=== PATIENT | female | born 1955 | race Caucasian/White ===

== ENCOUNTER 2020-04-15 08:06 | Outpatient (CLI) | payer MEDICARE, SELFPAY ==
[2020-04-15 09:38] LABS: Basophils Absolute Auto 0.1 K/mm3 (0.0-0.1); Basophils Percent Auto 1.2 % (0.2-1.2); Eosinophils Absolute Auto 0.1 K/mm3 (0-0.3); Eosinophils Percent Auto 1.6 % (0-4.4); Hematocrit 40.3 % (37.0-47.0); Hemoglobin 14.2 g/dL (12.0-15.0); Immature Granulocyte Absolute 0.01 K/mm3 (0.00-0.031); Immature Granulocyte Percent A 0.2 % (0-0.5); Lymphocytes Absolute Auto 1.05 K/mm3 (0.9-3.2); Lymphocytes Percent Auto 24.6 % (18.3-44.2); Mean Corpuscular HGB Conc 35.2 g/dl (32-36); Mean Corpuscular Hemoglobin 32.9 pg (26-34); Mean Corpuscular Volume 93.3 fl (80-100); Mean Platelet Volume 10.2 fl (7.4-10.4); Monocytes Absolute Auto 0.5 K/mm3 (0.1-0.6); Monocytes Percent Auto 11.7 % (2.6-8.5); Neutrophils Absolute Auto 2.6 K/mm3 (1.3-6.7); Neutrophils Percent Auto 60.7 % (45.5-73.1); Platelet Count Result 154 k/mm3 (150-375); Red Blood Count 4.32 M/mm3 (4.2-5.4); Red Cell Distribution Width 13.1 % (11.5-14.5); White Blood Count 4.3 K/mm3 (4.5-10.0)
[2020-04-15 09:46] LABS: Albumin Level 4.2 g/dL (3.5-5.1)
[2020-04-15 09:49] LABS: Hemoglobin A1C 5.1 % (<5.7)
[2020-04-15 09:50] LABS: Anion Gap 5 mmol/L (8-16); Blood Urea Nitrogen 23 mg/dL (7-17); Calcium 9.3 mg/dL (8.4-10.2); Carbon Dioxide 34 mmol/L (22-30); Chloride 102 mmol/L (98-107); Estimated Glomerular Filt Rate 56; Glucose 99 mg/dL (65-105); Potassium 3.8 mmol/L (3.4-5.0); Sodium 141 mmol/L (137-145); Urine Cotinine NEGATIVE
== END 2020-04-15 08:07 | disposition home or self-care (01) ==
LOC: ANHSURGERY 08:09
PROVIDERS: Anesthesiology; PCP Internal Medicine; Visit Provider Orthopaedic Surgery
DX: M17.12 Unilateral primary osteoarthritis, left knee (principal); I10 Essential (primary) hypertension; Z01.818 Encounter for other preprocedural examination
CPT/HCPCS: 80048; 80307; 82040; 83036; 85025; 86850; 86900; 86901; 87081

== ENCOUNTER → 2020-07-06 10:20 | Outpatient (CLI) | payer MEDICARE, SELFPAY ==
--- NOTE | ~2020-07-06 | MM_ITS ---
EXAMINATION: MM screening lanie BI w reji HISTORY: Screening TECHNIQUE: Craniocaudal and mediolateral oblique 3-D tomosynthesis images were obtained and synthetic 2-D images were generated. CAD analysis was submitted and interpreted. COMPARISON: Comparison to multiple prior studies sequentially, with oldest reviewed study dated 09/04. BREAST PARENCHYMAL COMPOSITION: There are scattered areas of fibroglandular density. FINDINGS: There is no evidence of suspicious mass, calcification, or architectural distortion to sugg est malignancy in either breast. There has been no suspicious interval change. IMPRESSION: 1. No mammographic evidence of malignancy. 2. Recommend routine screening mammography in one year. BI-RADS Category 1: Negative Reviewed, dictated and finalized at location A. 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
== END ==
PROVIDERS: PCP Internal Medicine; Visit Provider Obstetrics & Gynecology
DX: Z12.31 Encounter for screening mammogram for malignant neoplasm of breast (principal)
CPT/HCPCS: 77063; 77067

== ENCOUNTER 2020-07-21 08:48 | Outpatient (CLI) | payer MEDICARE, SELFPAY ==
[2020-07-21 09:27] LABS: Basophils Absolute Auto 0.1 K/mm3 (0.0-0.1); Eosinophils Absolute Auto 0.1 K/mm3 (0-0.3); Eosinophils Percent Auto 1.4 % (0-4.4); Hematocrit 42.9 % (37.0-47.0); Hemoglobin 15.3 g/dL (12.0-15.0); Immature Granulocyte Absolute 0.01 K/mm3 (0.00-0.031); Immature Granulocyte Percent A 0.2 % (0-0.5); Lymphocytes Percent Auto 20.2 % (18.3-44.2); Mean Corpuscular HGB Conc 35.7 g/dl (32-36); Mean Corpuscular Hemoglobin 33.3 pg (26-34); Mean Corpuscular Volume 93.3 fl (80-100); Mean Platelet Volume 9.9 fl (7.4-10.4); Monocytes Absolute Auto 0.6 K/mm3 (0.1-0.6); Monocytes Percent Auto 11.3 % (2.6-8.5); Neutrophils Absolute Auto 3.3 K/mm3 (1.3-6.7); Neutrophils Percent Auto 65.9 % (45.5-73.1); Platelet Count Result 153 k/mm3 (150-375); Red Cell Distribution Width 12.8 % (11.5-14.5)
[2020-07-21 09:35] LABS: Urine Cotinine NEGATIVE
[2020-07-21 09:53] LABS: Albumin Level 4.1 g/dL (3.5-5.1)
[2020-07-21 09:57] LABS: Anion Gap 8 mmol/L (8-16); Blood Urea Nitrogen 23 mg/dL (7-17); Calcium 9.4 mg/dL (8.4-10.2); Carbon Dioxide 29 mmol/L (22-30); Chloride 103 mmol/L (98-107); Estimated Glomerular Filt Rate 56; Glucose 109 mg/dL (65-105); Potassium 4.2 mmol/L (3.4-5.0); Sodium 140 mmol/L (137-145)
[2020-07-21 09:59] LABS: Hemoglobin A1C 5.3 % (<5.7)
== END 2020-07-21 08:49 | disposition home or self-care (01) ==
PROVIDERS: Anesthesiology; PCP Internal Medicine; Visit Provider Orthopaedic Surgery
DX: M17.12 Unilateral primary osteoarthritis, left knee (principal); Z79.899 Other long term (current) drug therapy; Z01.818 Encounter for other preprocedural examination
CPT/HCPCS: 36415; 80048; 80307; 82040; 83036; 85025; 86850; 86900; 86901; 87081

== ENCOUNTER → 2020-07-22 00:15 | Outpatient (CLI) | payer MEDICARE, SELFPAY ==
[2020-07-22 18:19] LABS: SARS-CoV-2 RNA PCR Negative
== END ==
PROVIDERS: Family Provider Internal Medicine; PCP Internal Medicine; Visit Provider Orthopaedic Surgery
DX: Z01.812 Encounter for preprocedural laboratory examination (principal); Z20.822 Contact with and (suspected) exposure to COVID-19
CPT/HCPCS: C9803; U0003; U0005

== ENCOUNTER 2020-07-25 01:01 | Day surgery (SDC) | payer MEDICARE, SELFPAY ==
[2020-04-15 08:15] VITALS: BMI 34.5
[2020-04-15 09:05] VITALS: BP 111/56; PULSE 64; RESP 16; TEMP 36.8; O2SAT 99
[2020-07-19 10:35] VITALS: BMI 34.4
[2020-07-25] VITALS (14 sets, daily range): BP systolic 105–133; BP diastolic 48–70; PULSE 63–88; RESP 14–20; TEMP 36.2–36.6; O2SAT 93–100
--- NOTE | ~2020-07-25 | XR_ITS ---
XR knee LT 2V DATE: 07/25/2020 10:02 INDICATION: Postoperative examination TECHNIQUE: Portable AP and lateral views COMPARISON: 12/15/2019 left knee FINDINGS: Status post left total knee arthroplasty with patellar resurfacing. Normal alignment of the prosthetic components. No fracture, dislocation or unusual radiopaque foreign body. No periosteal re action or bone destruction. There is expected postoperative subcutaneous emphysema. IMPRESSION: Status post left total knee arthroplasty with patellar resurfacing Reviewed, dictated and finalized at location B. [employer]
[2020-07-25] MEDS: ACETAMINOPHEN 500 MG TABLET 1000 MG PO ×4 (06:29→23:41)
--- NOTE | 2020-07-25 06:51 | WPDANESEPPF ---
Anes - Initial Pre Proc Eval Procedure: Operation Date: 07/25/20 07:30 Proposed Procedures p Left Total Knee Arthroplasty - Parmjit Watkins MD Date/Time: 07/25/20 06:51 Surgeon: Parmjit Watkins MD Pre Op Diagnosis: OA Left Knee Patient Data Age: 65 Gender: F Height: 1.63 m Weight: 91.8 kg Last Vital Signs Temp 36.4 C L 07/25/20 06:09 Pulse 73 07/25/20 06:09 Resp 16 07/25/20 06:09 BP 133/70 07/25/20 06:09 Pulse Ox 99 07/25/20 06:09 Allergies Allergy/AdvReac Type Severity Reaction Status Date / Time ciprofloxacin Allergy Severe CARDIAC Verified 07/25/20 06:30 ARRYTHMIA, SWELLING, ITCHING,CONFUSION Penicillins Allergy Mild Unknown Verified 07/25/20 06:30 Sulfa (Sulfonamide Allergy Mild RASH,SWELLI Verified 07/25/20 06:30 Antibiotics) NG Home Medications Medication Instructions Recorded Confirmed Type cholecalciferol (vitamin D3) 2,000 unit PO HS 05/18/19 07/25/20 History [Vitamin D3] folic acid 0.8 mg PO DAILY 05/18/19 07/25/20 History hydroxychloroquine 200 mg PO BID 05/18/19 07/25/20 History methotrexate sodium 2.5 mg PO WEEKLY 05/18/19 07/25/20 History ltaphvu-dmgqjjtku-novb 333 mg-133 1 tablet PO HS 06/16/19 07/25/20 History mg-5 mg tablet cyanocobalamin (vitamin B-12) 1,000 mcg PO DAILY 04/15/20 07/25/20 History flaxseed oil 1,000 mg PO HS 04/15/20 07/25/20 History losartan-hydrochlorothiazide 1 tablet PO QAM 04/15/20 07/25/20 History omega-3 fatty acids-vitamin E 1 cap PO BID 04/15/20 07/25/20 History [Fish Oil] nabumetone 750 mg tablet 375 mg PO BID tablet 06/29/20 07/25/20 History omeprazole 20 mg capsule,delayed 20 mg PO DAILY #90 cap 06/29/20 07/25/20 Rx release docusate sodium 100 mg capsule 100 mg PO DAILY PRN 07/20/20 07/25/20 History Patient hx anesthesia problems: post op nausea/vomiting Family hx anesthesia problems: none PMF Past Medical History Medical History (Updated 07/22/20 @ 08:13 by Leland Tran DO) Anxiety Gastroesophageal reflux disease without esophagitis Hypertension Mixed hyperlipidemia Osteoarthritis Osteoarthritis of left knee Osteopenia SLE (systemic lupus erythematosus related syndrome) Surgical History Surgical History History of cholecystectomy History of medial meniscus repair of right knee History of repair of rotator cuff Bilateral History of total knee replacement Right Family History Family History Mother Family history of chronic obstructive pulmonary disease Family history of heart disease in male family member before age 55 Kidney disease Social History Social History Smoking status: Never smoker Second hand tobacco smoke exposure: No Additional smoking assessment comments: NO NICOTINE OF ANY KIND Alcohol intake: former Alcohol use details: SOCIAL DRINKER IN PAST Substance use: never Living arrangements: with family Additional living arrangements comments: Additional occupation/education comments: [employer] Gender identity (if verbalized by the patient): Female Spiritual care concerns: No Anes - Eval Final PreProcedure Day of Procedure 07/25/20 06:51 Patient weight: obese Heart: regular rate and rhythm Lungs: clear to auscultation and normal air movement Airway: Mallampati scale class II Neurological: alert and oriented Last oral intake: >/= 8 hours ASA classification: III Emergent: no Anesthetic plan: proceed Anesthesia type and monitoring: general LMA and standard monitoring Informed Consent: The patient's anesthetic plan and its attendant risks and benefits were discussed with the patient/family/POA. Questions were solicited and answers provided to the satisfaction of the patient/family/POA.
--- NOTE | 2020-07-25 06:51 | WPDANESPNB ---
Anes - Peripheral Nerve Block Date/Time: 07/25/20 06:51 I have discussed with the patient/family/POA the placement of a peripheral nerve block for post-operative pain management, including associated risks, benefits, complications, and side effects. Alternative methods of post-operative analgesia were detailed. Questions were solicited and answers provided to the satisfaction of the patient/family/POA. Time-Out: A pre-procedural Time-Out was completed immediately before starting the procedure and confirmed: Patient Identification, Site, Procedure, Patient Position and the Availability of Requisite Equipment. Clinical Indications: Acute post-operative pain management requested by the operative surgeon. Nerve Block Insertion Note Anes-nerve block: adductor canal left Patient position: supine Skin prep: chlorhexidine Needle: 22 gauge, stimulating, insulated echogenic needle. Needle length: 80 mm Technique: ultrasound Injectate: bupivacaine 0.5% with epi 5 mcg/ml (30cc) Observations: tolerated well Complications: none Procedure start time:: 721 Procedure end time:: 724
[2020-07-25] MEDS: LACTATED RINGERS 1,000 ML 30 ML IV CONT ×2 (07:00→09:51)
[2020-07-25] MEDS: TRANEXAMIC ACID 1,000MG/ISO100 1,000 MG/100 ML BAG 200 MG IVPB (07:01)
[2020-07-25] MEDS: SCOPOLAMINE 1.5 MG PATCH TRANSDERM (07:09)
[2020-07-25] MEDS: FAMOTIDINE 20 MG/2 ML VIAL IV PUSH (07:09)
--- NOTE | 2020-07-25 07:10 | WPDHPUPDATE1 ---
History and Physical Update Update Date/Time: 07/25/20 07:10 History and Physical has been reviewed, including an updated exam of the patient. There are NO changes in the patient's condition. Risks, benefits, and alternatives have been discussed and questions answered. Patient agrees to proceed with procedure.
[2020-07-25] MEDS: ceFAZolin 2 GM/D5W 50 ML 2 GM/50 ML BAG IVPB ×3 (07:30→23:43)
[2020-07-25] MEDS: BUPIVACAINE/EPINEPHRINE 0.25% 50 ML VIAL 60 ML INFILTRATE (08:18)
[2020-07-25] MEDS: ceFAZolin SODIUM 1 GM VIAL IV PUSH (08:59)
[2020-07-25] MEDS: TRANEXAMIC ACID 1,000 MG/10 ML AMPUL 1000 MG XX (09:05)
--- NOTE | 2020-07-25 09:46 | P.OP_ITS ---
Procedure Note - Detailed Date of procedure: 07/25/20 Pre-op diagnosis: OA Left Knee Post-op diagnosis: same Procedure performed: Left total knee replacement Description of procedure: The patient was identified and proper site identified. In the preop holding area the anesthesia team performed a left sub sartorial block after which the patient was taken to the operating room and transferred to the OR table positioning supine taking care to pad the torso and extremities. After general anesthetic induction and intubation a nonsterile tourniquet was placed high on the left thigh. The left lower extremity was prepped and draped in the usual sterile fashion. The extremity was exsanguinated and with the knee flexed tourniquet was inflated to 300 mmHg remaining up for approximately 60 minutes. An anterior midline incision was made and a mid vastus approach was used. Infra and suprapatellar fat pads were excised. Patella was resected leaving 15 mm thickness and prepared for the 31 round three peg component. Using the intramedullary guide the distal femur was cut in the proper orientation for the size 62.5 femoral component. Using the extramedullary guide the tibia was cut perpendicular to the long axis protecting collateral ligaments and popliteal structures. It was sized to a 67. Flexion and extension gaps were balanced. Trial reduction was undertaken and the weight-bearing line was noted to passed through the center of the joint. Proximal tibia was drilled and punched in the proper orientation for the real component. Trial components were removed. The bone surfaces were washed with pulsatile lavage and dried. The real components were cemented simultaneously. The knee was held in extension and the patella held clamped until the cement had cured. Excess cement was removed from the joint. After trialing it was determined that the 12 mm insert gave full range of motion from 0-120 degrees of flexion and the patella tracked in the femoral groove with no lift-off. After final lavage the joint the real 12 E poly insert was placed and secured with a locking bar. A Betadine and saline wash was placed into the wound and allowed to sit for approximately 3 minutes and then evacuated. Periarticular tissues were infiltrated with 60 cc of the arthroplasty solution. 1 g of tranexamic acid was left in the wound. The extensor mechanism was repaired with #2 Vicryl suture and 0 looped PDS suture. Subcu was reapproximated with two 0 strata fix and tissue adhesive for the skin. A sterile dressing was applied. she tolerated the procedure well, was awakened and extubated, transferred to the bed and was taken to recovery area in stable condition. There were no known intraoperative complications. Perioperative antibiotics were administered. Surgeon: Parmjit Watkins MD Regulatory Auditor: Nina Ash Estimated blood loss (mL): 100 Tourniquet time (min): 60 Drains: No Packing: No Pathology: none sent Complications: No immediate complications Condition: stable Disposition: PACU
[2020-07-25] MEDS: fentaNYL CITRATE INJ (*CRX) 100 MCG/2 ML VIAL 25 MCG IV PUSH ×4 (10:22→10:51)
--- NOTE | 2020-07-25 11:10 | ADMGEN ---
This patient, Laurita Myles, was admitted to Medical Room 255-. Patient/family oriented to hospital policies and general routines including ID bracelet, bed and alarms, visiting hours, pain management, procedures, bathroom and other care routines, personal items, smoking policy, room service/diet, and visiting hours. Information on how to activate the Rapid Response Team has been discussed. Patient/Family are encouraged to report perceived risks to care and to ask questions if they do not understand what they are told or what they should do.
[2020-07-25] MEDS: KETOROLAC 15 MG/ML VIAL (*BKC) IV PUSH ×3 (11:29→23:41)
[2020-07-25] MEDS: SODIUM CHLORIDE 0.9% IV 1,000 ML 125 ML IV CONT (11:29)
[2020-07-25] MEDS: TAPENTADOL HCL (*CRX) 50 MG TABLET PO ×4 (11:29→23:41)
[2020-07-25] MEDS: OMEGA 3 POLYUNSAT FATTY ACIDS 1 GM CAP PO (16:10)
[2020-07-25] MEDS: HYDROXYCHLOROQUINE SULFATE 200 MG TABLET PO (16:10)
[2020-07-26 00:51] VITALS: BP 122/58; PULSE 83; RESP 18; TEMP 36; O2SAT 97
[2020-07-26] MEDS: TAPENTADOL HCL (*CRX) 50 MG TABLET PO ×3 (04:01→11:11)
[2020-07-26 04:51] VITALS: BP 95/51; PULSE 79; RESP 20; TEMP 36.3; O2SAT 97
[2020-07-26] MEDS: ACETAMINOPHEN 500 MG TABLET 1000 MG PO ×2 (06:10→11:11)
[2020-07-26] MEDS: ceFAZolin 2 GM/D5W 50 ML 2 GM/50 ML BAG IVPB (06:45)
--- NOTE | 2020-07-26 07:36 | PM.DS ---
DS: Admitting Diagnosis Admitting Diagnosis Admitting Diagnosis: Osteoarthritis left knee DS: Discharge Diagnosis Discharge Diagnosis (1) History of left knee replacement: Code(s): Z96.652 - Presence of left artificial knee joint Status: Acute Assessment and Plan: Patient will be discharged home today. Her outpatient therapy begins in one week. She was provided with detailed instructions and was asked to call the office with any questions prior to her follow-up. DS: Summary Hospital Course Reason for hospitalization: Overnight observation following outpatient procedure Hospital Course: Postoperative course uneventful Status at Discharge Functional status at discharge: uses cane/walker Time Spent with Patient Time attestation: Total time spent providing and/or coordinating discharge services: Time spent: Less than 30 minutes Exam Const: General: cooperative, no acute distress and alert Nutritional Appearance: other Orientation/consciousness: patient oriented x3 HENMT: Head: normal to inspection Ears: hearing grossly normal bilaterally Face and sinus: face symmetric Eyes: Alignment and Position: alignment normal and position normal Sclera: sclerae normal Neck: Neck: normal visual inspection and nontender Chest: Chest palpation & inspection: normal inspection of the chest Resp: Effort & Inspection: normal respiratory effort and able to speak in complete sentences GI: Inspection: other (Abdomen nondistended) Skin: General skin exam: normal color Rashes: no rashes Neuro: General: patient oriented x3 Cognition (Neuro): normal cognition Speech: normal speech Extrem: General: normal to inspection and other Other: Exam of the left knee shows well opposed incision with very little swelling, no bruising or erythema. Calves negative. Psych: Appearance: grossly normal Mental Status: mental status grossly normal Discharge Plan Discharge Patient Disposition: Home, Self-Care Discharge Instructions: 3 times daily for 20 minutes each time, reclining in bed with ice packs over the incision and a pillow underneath the calf of the affected leg, not under the knee. Your wound is glued so it is okay to get into the shower and get the wound wet in two days. Be sure to read through all the information that came from a my office and the hospital. Most of the answers you will need can be found that material. Call the office with any questions that you cannot find answers to, or concerns you may have. After the Xarelto is completed, start taking one coated 325 mg aspirin daily and do this for four more weeks. Please call [facility] at as soon as possible to verify your follow-up appointment to be seen in 2 weeks. Also, call the office with any orthopedic/surgical related questions prior to follow-up. Be sure to get up and move around several times daily but do not overdo it. Take the arthritis formula Tylenol 650 mg tablet on an 8 hour schedule. A good 8 hour schedule is: 6:00 a.m., 2:00 p.m., 10:00 p.m. You may take the prescribed pain medication along with the Tylenol; it is not to be taken instead of the Tylenol. I would like for you to take the Tylenol on a schedule for 2-3 weeks. Once the Xarelto is completed, if you wish to supplement your pain regimen with the nabumetone, that is fine. Follow the label instructions. Remove the Scopolamine patch that was placed behind your ear in 72 hours or less. Wash your hands after touching. Stand Alone Forms: General Discharge Instructions Discharge Medications: New Nucynta 50 mg Tablet 50 mg PO Q4H PRN (Reason: pain) Qty: 30 RF: 0 Held nabumetone 750 mg tablet 375 mg PO BID RF: 0 Hold Instructions: Resume on 08/08/20. Hold while taking the Xarelto methotrexate sodium 2.5 mg tablet 2.5 mg PO WEEKLY RF: 0 Hold Instructions: Resume on 08/08/20. omega-3 fatty acids-vitamin E 1,000 mg Capsule 1 cap P
[2020-07-26] MEDS: FOLIC ACID 0.4 MG TABLET 0.8 MG PO (08:06)
[2020-07-26] MEDS: OMEGA 3 POLYUNSAT FATTY ACIDS 1 GM CAP PO (08:06)
[2020-07-26] MEDS: HYDROXYCHLOROQUINE SULFATE 200 MG TABLET PO (08:06)
[2020-07-26] MEDS: RIVAROXABAN 10 MG TABLET PO (08:07)
[2020-07-26] MEDS: PANTOPRAZOLE 40 MG TABLET PO (08:07)
[2020-07-26] MEDS: DOCUSATE SODIUM 100 MG CAPSULE PO (08:09)
[2020-07-26 08:11] VITALS: BP 120/74
[2020-07-26] MEDS: hydroCHLOROthiazide 25 MG TABLET PO (08:12)
[2020-07-26] MEDS: LOSARTAN POTASSIUM 100 MG TABLET PO (08:12)
--- NOTE | 2020-07-26 08:36 | WPDANESPN ---
Anes - Prog Note Post-Op Date/Time: 07/26/20 08:36 Cardiovascular status: normal Respiratory status: normal Airway patency: baseline Mental status: baseline Post-Op hydration status: normal Vital Signs: Last Vital Signs Temp 36.3 C L 07/26/20 04:51 Pulse 79 07/26/20 04:51 Resp 20 07/26/20 04:51 BP 120/74 07/26/20 08:11 Pulse Ox 97 07/26/20 04:51 Pain Score (VAS): 2 I/O: Intake & Output 07/25/20 07/26/20 07/26/20 23:59 07:59 15:59 Intake Total 1290 400 300 Output Total 550 Balance 1290 -150 300 Post-procedural complaints: none Patient Feedback: Patient satisfied with anesthetic care.
[2020-07-26 08:51] VITALS: BP 113/63; PULSE 77; RESP 16; TEMP 36.6; O2SAT 96
[2020-07-26] MEDS: CYANOCOBALAMIN 1,000 MCG TABLET 1000 MCG PO (11:11)
== END 2020-07-26 11:30 | disposition home or self-care (01) ==
LOC: ANHSURGERY 09:37 → ANH2MED 11:11
PROVIDERS: Family Provider Internal Medicine; PCP Internal Medicine; Visit Provider Orthopaedic Surgery
PROC: (CPT 27447; principal; 2020-07-25 07:30)
DX: M17.12 Unilateral primary osteoarthritis, left knee (principal); G89.18 Other acute postprocedural pain; I10 Essential (primary) hypertension; E78.5 Hyperlipidemia, unspecified; M32.9 Systemic lupus erythematosus, unspecified; K21.9 Gastro-esophageal reflux disease without esophagitis; F41.9 Anxiety disorder, unspecified; E66.9 Obesity, unspecified; Z68.34 Body mass index [BMI] 34.0-34.9, adult
CPT/HCPCS: 27447; 64447; 36415; 73560; 80048; 80307; 82040; 83036; 85025; 86850; 86900; 86901; 87081; 97110; 97116; 97161; 97165; 97530; A9270; C1713; C1776; C9803; J0690; J1100; J1170; J1885; J2250; J2370; J2405; J2704; J3010; J7030; J7120; U0003; U0005

== ENCOUNTER 2020-09-05 11:00 | Outpatient (RCR) | payer MEDICARE, SELFPAY ==
--- NOTE | 2020-08-01 09:43 | PTOPEVAL ---
Thank you for referring Laurita Myles to [facility].? The patient is scheduled to be seen for therapy? 2 x/week for 5 weeks. Please review, sign, date and return this plan of care GIA. I agree with and certify that the following plan of care is medically necessary. Referring Physician Date Attending Provider: Parmjit Watkins MD Physical Therapy Evaluation Evaluation Information Problem Diagnosis left knee TKA Onset 07/25/20 Cause OA Subjective Information Pt has been using a walker Query Text:As Reported By Patient/ since surgery. She has history Family of sciatica and shoulder pain . She reports limitations with standing, household walking, ADL's, IADL's and community mobility since the surgery. 2 FRANCESCA with hand railing. She was using a cane as needed prior to surgery. PLOF: indep with mobility. She was limited with tolerance with standing and walking due to knee and hip pain. 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 She was performing short trips in the community. She retired Feb 2021. She does not perform a regular fitness program. Previous Treatments Previous Treatments For This Problem no Pain Assessment Left Knee(s) Reported Pain Level 8 Pain Description Aching,Incisional,Pressure, Pulling Pain Frequency Continuous Lowest Pain Intensity 5 Greatest Pain Intensity 10 Pain Aggravating Factors ADL's,Exercise/Activity, Lifting,Stair Climbing,Walking ,Weight Bearing/Standing Pain Behaviors None Pain Score Pain Score 8: Self Report Lower Extremity Range of Motion Right Knee Flexion Range of Motion - Active 128 Knee Extension Range of Motion - Passive 0 Left Knee Flexion Range of Motion - Active 80 Knee Extension Range of Motion - Passive -10 Lower Extremity Muscle Strength Testing Right Hip Flexion Strength 4+ Good + Hip Extension Strength 3 Fair Left Hip Flexion Strength 3 Fair Hip Extension Strength 3 Fair Hip Abduction Strength 3- Fair - Knee Strength Right Knee Flexion Strength 4- Good - Knee Extension Strength 4+ Good +
--- NOTE | 2020-09-05 11:53 | PTOPEVAL ---
Thank you for referring Laurita Myles to [facility] [place].? Patient has been seen for 11 therapy visits to address his leg impairments related to his knee surgery. She demonstrates improved knee range, leg strength and improve functional mobility with transfers and ambulation. She has achieved her therapy goals at this time. She is independent with her home exercise program. Plan to D/C skilled therapy services at this time. Please review, sign, date and return this discharge note GIA. I agree with and certify that the following plan of care is medically necessary. Referring Physician Date Attending Provider: Parmjit Watkins MD Physical Therapy Discharge Note Diagnosis left knee TKA Onset 07/25/20 Cause OA Subjective Information She has progressed to a cane Query Text:As Reported By Patient/ for mobility mainly for Family community. Denies any problems with ADL's, IADL's, walking in the house or community. She has walked 1 1/2 blocks without problems. Reports the leg is stronger with improved ability to get in/out of car or off low surfaces. She is using ice after exercise with leg elevation as needed. Reports improved knee edema. Pain Assessment Left Knee(s) Reported Pain Level 1 Pain Description Pinching Pain Frequency Intermittent Lowest Pain Intensity 0 Greatest Pain Intensity 2 Pain Score Pain Score 1: Self Report Lower Extremity Range of Motion Knee Range of Motion Left Knee Flexion Range of Motion - Active 125 Knee Extension Range of Motion - Passive -3 Lower Extremity Muscle Strength Testing Hip Strength Right Hip Flexion Strength 5 Normal Hip Extension Strength 4+ Good + Hip Abduction Strength 4- Good - Left Hip Flexion Strength 5 Normal Hip Extension Strength 4+ Good + Hip Abduction Strength 4- Good - Knee Strength Right Knee Flexion Strength 5 Normal Knee Extension Strength 5 Normal Left Knee Flexion Strength 5 Normal Knee Extension Strength 5 Normal Extremity Circumference Assessment Location Left Body Part Knee Site Descriptor ([place]) mid-patellar region Circumference (cm) 41 Noninvolved Side Circumference (cm) 38 Circumference Comments tibial tuberosity: left 36 cm, right: 35 cm Balance Assessment Time Up Go (TUG) Timed Up and Go Test (TUG) (
== END 2020-09-05 13:08 | disposition home or self-care (01) ==
LOC: ANHPT 11:00
PROVIDERS: PCP Internal Medicine; Visit Provider Orthopaedic Surgery
DX: Z47.1 Aftercare following joint replacement surgery (principal); Z96.652 Presence of left artificial knee joint
CPT/HCPCS: 97014; 97110; 97112; 97162; 97530; G0283

== ENCOUNTER → 2021-09-13 15:13 | Outpatient (CLI) | payer MEDICARE, SELFPAY ==
--- NOTE | ~2021-09-13 | MM_ITS ---
EXAMINATION: MM screening lanie BI w reji HISTORY: Screening TECHNIQUE: Craniocaudal and mediolateral oblique 3-D tomosynthesis images were obtained and synthetic 2-D images were generated. CAD analysis was submitted and interpreted. COMPARISON: Comparison to multiple prior studies sequentially, with oldest reviewed study dated 07/20. BREAST PARENCHYMAL COMPOSITION: The breasts are almost entirely fatty. FINDINGS: There is no evidence of suspicious mass, calcification, or architectural distortion to sugg est malignancy in either breast. There has been no suspicious interval change. IMPRESSION: 1. No mammographic evidence of malignancy. 2. Recommend routine screening mammography in one year. BI-RADS Category 1: Negative Reviewed, dictated and finalized at location A.
== END ==
PROVIDERS: PCP Internal Medicine; Visit Provider Nurse Practitioner
DX: Z12.31 Encounter for screening mammogram for malignant neoplasm of breast (principal)
CPT/HCPCS: 77063; 77067

== ENCOUNTER → 2022-01-12 10:32 | Outpatient (CLI) | payer MEDICARE, SELFPAY ==
--- NOTE | ~2022-01-12 | XR_ITS ---
XR lumbar spine 2-3V DATE: 01/12/2022 11:07 INDICATION: Back pain. Lumbar spondylosis. TECHNIQUE: AP, lateral, coned lateral lumbosacral views COMPARISON: 04/30/2017 lumbar spine FINDINGS: There is osteopenia. There is prominent degenerative change at the apophyseal joints of the mid and lower lumbar spine, wi th associated grade 1 anterolisthesis at L3-4, L4-5. Mild loss of interspace height at L1-2, L3-4, moderate loss of interspace height at L4-5. Moderately severe loss of interspace height at L5-S1, with vacuum phenomenon. The included lower thoracic and lumbar pedicles are intact. No fracture or bone destruction is detect ed. The sacroiliac joints are intact. IMPRESSION: Osteopenia Degenerative changes of the apophyseal joints with grade 1 anterolisthesis at L3-4 and L4-5 Multilevel degenerative disc disease, greatest at L5-S1 Reviewed, dictated and finalized at location B. IMPRESSION: Osteopenia Degenerative changes of the apophyseal joints with grade 1 anterolisthesis at L 3-4 and L4-5 Multilevel degenerative disc disease, greatest at L5-S1
== END ==
DX: M47.816 Spondylosis without myelopathy or radiculopathy, lumbar region (principal); M85.88 Other specified disorders of bone density and structure, other site; M51.37 Other intervertebral disc degeneration, lumbosacral region
CPT/HCPCS: 72100

== ENCOUNTER 2022-12-06 14:43 | Outpatient (CLI) | payer MEDICARE, SELFPAY ==
--- NOTE | ~2022-12-06 | CT_ITS ---
EXAMINATION: CT brain wo con DATE: 12/06/2022 15:10 INDICATION: new onset TODD . TECHNIQUE: Computed tomography (CT) of the head was performed without intravenous contrast. The mA wa s adjusted according to patient size. Iterative reconstruction technique was employed. The dose-lengt h product was 605.33 mGy-cm. COMPARISON: None. FINDINGS: No acute intracranial hemorrhage or extra-axial fluid collection. No hydrocephalus, mass, or herniation. No acute ischemic infarct. Unremarkable dural venous sinus attenuation. No acute osseous abnormality. The aerated spaces are clear. IMPRESSION: No acute intracranial process. Normal head CT findings. Reviewed, dictated and finalized at location K.
== END 2022-12-06 14:44 | disposition home or self-care (01) ==
PROVIDERS: PCP Internal Medicine; Visit Provider Internal Medicine
DX: R51.9 Headache, unspecified (principal)
CPT/HCPCS: 70450

== ENCOUNTER 2023-05-22 02:15 | Day surgery (SDC) | payer MEDICARE, SELFPAY ==
[2023-05-09 11:26] VITALS: BMI 34.6
--- NOTE | 2023-05-20 09:34 | SUR.PREOP ---
Patient called regarding upcoming procedure. Message left on patient's voicemail regarding preop instructions, appointment times, and procedure prep.
--- NOTE | 2023-05-21 15:21 | PM.HPGS ---
History of Present Illness History of Present Illness Consent: Risks, benefits, and alternatives have been discussed and questions answered. Patient agrees to proceed with procedure. Chief complaint: left upper quadrant pain,hx colon polyps Narrative: Laurita Myles is a 68 year old female who states that she has always been constipated.? She states over the last 6 months she has noticed a change in bowel habits where she can skip several days without a bowel movement and they will be ?pasty?, or explosive and watery.? She also states that they are more of a ?pencil size?.? She has had a few different episodes of left upper quadrant underneath her left rib cage that has been ?sharp? that comes and goes very fast. She has history of having an adenomatous polyp removed in 2019. Review of Systems Review of Systems: All systems reviewed & are unremarkable except as noted in HPI and below PMFSH Past Medical History Medical History Abdominal bloating Anxiety Change in bowel habits External hemorrhoids Gastroesophageal reflux disease without esophagitis Hx of adenomatous polyp of colon Hypertension LUQ pain Mixed hyperlipidemia Osteoarthritis Osteopenia SLE (systemic lupus erythematosus related syndrome) Surgical History Surgical History History of bilateral knee replacement Left July 2020 right March 2017 History of cholecystectomy History of medial meniscus repair of right knee History of repair of rotator cuff Bilateral Family History Family History Mother Family history of chronic obstructive pulmonary disease Family history of heart disease in male family member before age 55 Kidney disease Social History Social History Smoking status: Never smoker Second hand tobacco smoke exposure: No Alcohol intake: never Alcohol use details: SOCIAL DRINKER IN PAST Substance use: never Substance use type: does not use Lack of Transportation: No Lack of Food: Never True Current Housing: I Have Housing Concerned About Future Housing: No Difficulty Paying Gas/Electric Bills: No Difficulty Paying for Meds: No Currently Unemployed: No Education: Trade/Vocational Certificate Difficulty w/ Childcare or Family Care: No Living arrangements: with family Additional living arrangements comments: Occupation/Education: occupation Additional occupation/education comments: [employer] Gender identity (if verbalized by the patient): Female Sexual Orientation (if Verbalized by the Patient): Straight or Heterosexual Spiritual care concerns: No Meds Home Medications and Allergies Home Medications Medication Instructions Recorded Confirmed Type cholecalciferol (vitamin D3) 25 2,000 unit PO HS 05/18/19 05/22/23 History mcg (1,000 unit) capsule (Vitamin D3) folic acid 800 mcg tablet 0.8 mg PO DAILY 05/18/19 05/22/23 History hydroxychloroquine 200 mg tablet 200 mg PO BID 05/18/19 05/22/23 History [id number] 333 mg-133 1 tablet PO HS 06/16/19 05/22/23 History mg-5 mg tablet cyanocobalamin (vitamin B-12) 1,000 mcg PO DAILY 04/15/20 05/22/23 History 1,000 mcg tablet omega-3 fatty acids-vitamin E 1 cap PO BID 04/15/20 05/22/23 History 1,000 mg capsule docusate sodium 100 mg capsule 100 mg PO DAILY PRN Constipation 07/20/20 05/22/23 History (Colace) omeprazole 20 mg capsule,delayed 20 mg PO DAILY #90 caps 05/28/22 05/22/23 Rx release belimumab 120 mg intravenous 400 mg IV ONCE 01/11/23 05/22/23 History solution (Benlysta) Allergies Allergy/AdvReac Type Severity Reaction Status Date / Time ciprofloxacin Allergy Severe CARDIAC Verified 05/22/23 13:28 ARRYTHMIA, SWELLING, ITCHING,CONFUSION Penicillins Allerg
[2023-05-22 13:29] VITALS: BP 155/96; PULSE 78; RESP 16; TEMP 36.2; O2SAT 98
[2023-05-22] MEDS: LACTATED RINGERS 1,000 ML 150 ML IV CONT (13:38)
--- NOTE | 2023-05-22 13:52 | WPDANESEPPF ---
Anes - Initial Pre Proc Eval Procedure: Operation Date: 05/22/23 14:30 Proposed Procedures p Colonoscopy - Christo Padilla MD Date/Time: 05/22/23 13:52 Surgeon: Christo Padilla MD Pre Op Diagnosis: left upper quadrant pain,hx colon polyps Patient Data Age: 68 Gender: F Height: 1.63 m Weight: 88.4 kg Last Vital Signs Temp 97.1 F L 05/22/23 13:29 Pulse 78 05/22/23 13:29 Resp 16 05/22/23 13:29 BP 155/96 H 05/22/23 13:29 Pulse Ox 98 05/22/23 13:29 O2 Del Method Room Air 05/22/23 13:29 Allergies Allergy/AdvReac Type Severity Reaction Status Date / Time ciprofloxacin Allergy Severe CARDIAC Verified 05/22/23 13:28 ARRYTHMIA, SWELLING, ITCHING,CONFUSION Penicillins Allergy Mild Unknown Verified 05/22/23 13:28 Sulfa (Sulfonamide Allergy Mild RASH,SWELLI Verified 05/22/23 13:28 Antibiotics) NG Home Medications Medication Instructions Recorded Confirmed Type cholecalciferol (vitamin D3) 25 2,000 unit PO HS 05/18/19 05/22/23 History mcg (1,000 unit) capsule (Vitamin D3) folic acid 800 mcg tablet 0.8 mg PO DAILY 05/18/19 05/22/23 History hydroxychloroquine 200 mg tablet 200 mg PO BID 05/18/19 05/22/23 History oypvmbh-fmszbdjmr-ixef 333 mg-133 1 tablet PO HS 06/16/19 05/22/23 History mg-5 mg tablet cyanocobalamin (vitamin B-12) 1,000 mcg PO DAILY 04/15/20 05/22/23 History 1,000 mcg tablet omega-3 fatty acids-vitamin E 1 cap PO BID 04/15/20 05/22/23 History 1,000 mg capsule docusate sodium 100 mg capsule 100 mg PO DAILY PRN Constipation 07/20/20 05/22/23 History (Colace) omeprazole 20 mg capsule,delayed 20 mg PO DAILY #90 caps 05/28/22 05/22/23 Rx release belimumab 120 mg intravenous 400 mg IV ONCE 01/11/23 05/22/23 History solution (Benlysta) Patient hx anesthesia problems: none Family hx anesthesia problems: none Results Review: All pre-operative results and documents have been reviewed as part of the pre-operative evaluation. [facility] Past Medical History Medical History Abdominal bloating Anxiety Change in bowel habits External hemorrhoids Gastroesophageal reflux disease without esophagitis Hx of adenomatous polyp of colon Hypertension LUQ pain Mixed hyperlipidemia Osteoarthritis Osteopenia SLE (systemic lupus erythematosus related syndrome) Surgical History Surgical History History of bilateral knee replacement Left July 2020 right March 2017 History of cholecystectomy History of medial meniscus repair of right knee History of repair of rotator cuff Bilateral Family History Family History Mother Family history of chronic obstructive pulmonary disease Family history of heart disease in male family member before age 55 Kidney disease Social History Social History Smoking status: Never smoker Second hand tobacco smoke exposure: No Alcohol intake: never Alcohol use details: SOCIAL DRINKER IN PAST Substance use: never Substance use type: does not use Lack of Transportation: No Lack of Food: Never True Current Housing: I Have Housing Concerned About Future Housing: No Difficulty Paying Gas/Electric Bills: No Difficulty Paying for Meds: No Currently Unemployed: No Education: Trade/Vocational Certificate Difficulty w/ Childcare or Family Care: No Living arrangements: with family Additional living arrangements comments: Occupation/Education: occupation Additional occupation/education comments: [employer] Gender identity (if verbalized by the patient): Female Sexual Orientation (if Verbalized by the Patient): Straight or Heterosexual Spiritual care concerns: No Anes - Eval Final PreProcedure Day of Procedure 05/22/23 13:52 Patient weight: obe
[2023-05-22 14:08] VITALS: BP 120/77; PULSE 80; RESP 16; O2SAT 97
[2023-05-22 14:18] VITALS: BP 111/68; PULSE 72; RESP 18; O2SAT 100
[2023-05-22 14:28] VITALS: BP 131/87; PULSE 72; RESP 20; O2SAT 100
== END 2023-05-22 14:40 | disposition home or self-care (01) ==
PROVIDERS: PCP Internal Medicine; Visit Provider Internal Medicine Gastroenterology
PROC: 0DJD8ZZ Inspection of Lower Intestinal Tract, Via Natural or Artificial Opening Endoscopic (ICD-10-PCS; CPT 45378; principal; 2023-05-22 14:30)
DX: Z12.11 Encounter for screening for malignant neoplasm of colon (principal); K57.30 Diverticulosis of large intestine without perforation or abscess without bleeding; K64.8 Other hemorrhoids; Z86.010 Personal history of colon polyps; K21.9 Gastro-esophageal reflux disease without esophagitis; I10 Essential (primary) hypertension; E78.2 Mixed hyperlipidemia; M32.9 Systemic lupus erythematosus, unspecified; E66.9 Obesity, unspecified; Z68.33 Body mass index [BMI] 33.0-33.9, adult
CPT/HCPCS: G0105; J2704; J7120

== ENCOUNTER 2024-01-15 12:21 | Outpatient (CLI) | payer MEDICARE, SELFPAY ==
--- NOTE | ~2024-01-15 | MM_ITS ---
EXAMINATION: MM screening [facility] BI w reji HISTORY: Screening TECHNIQUE: Craniocaudal and mediolateral oblique 3-D tomosynthesis images were obtained and synthetic 2-D images were generated. CAD analysis was submitted and interpreted. COMPARISON: Comparison to multiple prior studies sequentially, with oldest reviewed study dated 07/20. BREAST PARENCHYMAL COMPOSITION: Not Dense. The breasts are almost entirely fatty. FINDINGS: There is no evidence of suspicious mass, calcification, or architectural distortion to sugg est malignancy in either breast. There has been no suspicious interval change. IMPRESSION: 1. No mammographic evidence of malignancy. 2. Recommend routine screening mammography in one year. BI-RADS Category 1: Negative Reviewed, dictated and finalized at location B.
== END 2024-01-15 12:22 ==
PROVIDERS: PCP Internal Medicine; Visit Provider Internal Medicine
DX: Z12.31 Encounter for screening mammogram for malignant neoplasm of breast (principal)
CPT/HCPCS: 77063; 77067

== ENCOUNTER 2024-03-24 10:31 | Outpatient (CLI) | payer MEDICARE, SELFPAY ==
--- NOTE | ~2024-03-24 | US_ITS ---
Renal-Bladder ultrasound Clinical History: Abdominal pain Technique: Real-time sonographic imaging of the kidneys and urinary bladder was performed. Findings: The right kidney measures 11.0 cm in length and the left kidney measures 10.4 cm. There is no hydronephrosis or renal calculus identified. Renal cortical echogenicity is within normal limits. No renal mass lesion is identified. The urinary bladder is moderately distended at the time of this exam. No intraluminal echoes are iden tified. No abnormal wall thickening is seen. Impression: Unremarkable ultrasound of the kidneys and urinary bladder. Reviewed, dictated and finalized at location M. Impression: Unremarkable ultrasound of the kidneys and urinary bladder.
--- NOTE | ~2024-03-24 | US_ITS ---
Limited Abdominal Sonogram: Real-time sonographic imaging of the right upper quadrant was performed. Clinical History: Right upper quadrant pain Findings: The liver appears echogenic, with no evidence of mass lesion or bile duct dilatation. Main portal vein demonstrates normal direction of flow. The gallbladder is absent, compatible prior jena cystectomy. The common bile duct measures 4 mm. The visualized pancreas, aorta, and IVC are unremark able. Right kidney measures 10.4 cm in length, without hydronephrosis or renal stone. Impression: Diffuse fatty infiltration of the liver. Reviewed, dictated and finalized at location . Impression: Diffuse fatty infiltration of the liver.
== END 2024-03-24 10:32 | disposition home or self-care (01) ==
PROVIDERS: PCP Internal Medicine; Visit Provider Internal Medicine
DX: R10.11 Right upper quadrant pain (principal); K76.0 Fatty (change of) liver, not elsewhere classified
CPT/HCPCS: 76705; 76775

== ENCOUNTER 2024-04-13 07:28 | Outpatient (CLI) | payer MEDICARE, SELFPAY | END 2024-04-13 07:29 | disposition home or self-care (01) | LOC: ANHCARD 07:29 | PROVIDERS: PCP Internal Medicine; Visit Provider Internal Medicine | DX: R00.2 Palpitations (principal) | CPT/HCPCS: 93242 ==

== ENCOUNTER 2024-10-07 13:23 | Outpatient (CLI) | payer MEDICARE, SELFPAY ==
--- NOTE | ~2024-10-07 | XR_ITS ---
XR hand LT min 3V Ordering provider: Mary Brandt, History: . Systemic lupus erythematosus, unspecified . Comparison: None. FINDINGS: BONES: No acute fracture or dislocation. JOINT SPACES: Osteoarthritic changes of the first carpometacarpal joint. Osteoarthritic changes of th e first interphalangeal joint. Chondrocalcinosis of the TFC. SOFT TISSUES: Unremarkable. IMPRESSION: No acute osseous abnormality left hand. Polyarticular osteoarthritic changes. Reviewed, dictated and finalized at location A.
--- NOTE | ~2024-10-07 | XR_ITS ---
XR hand RT min 3V Ordering provider: Mary Brandt, History: . Systemic lupus erythematosus, unspecified . Comparison: None. FINDINGS: BONES: No acute fracture or dislocation. JOINT SPACES: Osteoarthritic changes of the first interphalangeal joint. SOFT TISSUES: Normal. IMPRESSION: No acute osseous abnormality right hand. Reviewed, dictated and finalized at location A.
== END 2024-10-07 13:24 | disposition home or self-care (01) ==
LOC: MICIMG 13:24
PROVIDERS: PCP Internal Medicine; Visit Provider Internal Medicine
DX: M32.9 Systemic lupus erythematosus, unspecified (principal); M19.042 Primary osteoarthritis, left hand
CPT/HCPCS: 73130

== ENCOUNTER 2024-10-16 10:00 | Outpatient (RCR) | payer MEDICARE, SELFPAY ==
[2024-09-10 10:00] VITALS: BP_SYST 75
--- NOTE | 2024-09-10 11:02 | OPREHPOC ---
Outpatient Therapy Plan of Care This is a Multidisciplinary Plan of Care that may contain components documented by all disciplines (PT, OT, and ST.) PT Problem 1 PT Problem #1 Knowledge Deficit PT Goal 1 Goal / Goal Update *indep with HEP Target Visit 6 PT Problem 2 PT Problem #2 Pain PT Goal 1 Goal / Goal Update * pt report pain at worst of 5/10 Target Visit 6 PT Problem 3 PT Problem #3 Impaired Flexibility PT Goal 1 Goal / Goal Update * improve L shoulder flexibility, for improved out come with surgery passive motion of shoulder 1* flexion 120' 2* abduction 90' 3* ER with elbow at her side, 45' Target Visit 6 PT Problem 4 PT Problem #4 Impaired Strength PT Goal 1 Goal / Goal Update * increase strength of L shoulder, to improve use of L arm and outcome post op: in standing, 3 reps active 1* flexion to 90' 2* abduction to 90' 3* ER- reach to back of head, palm to behind ear 4* IR- reach behind back, palm to buttock Target Visit 6
--- NOTE | 2024-09-10 11:02 | PTOPEVAL1 ---
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 She is scheduled for a reverse total shoulder replacement in October. Her history includes R and L rotator cuff surgery. With the evaluation, she has decreased L shoulder ROM and strength, with painful motions. Skilled PT services are indicated pre op: to increase active ROM and strength for improved out come post op; modalities to decrease pain and education to pt for HEP. Plan of Care Interventions Electrical Stimulation,Hot Pack/Cold Pack,Manual Therapy,Neuro Re-education,Patient/Caregiver Education,Therapeutic Activities,Therapeutic Exercise,Ultrasound,Other Other Interventions taping PT Services Indicated Yes Treatment Frequency and 1x/wk for 6 visits Duration These treatments will address the objective and functional deficits as defined above. The patient will be advanced safely and appropriately in order for the patient to progress towards his/her prior level of function. Additional exercises will be introduced and as well as a comprehensive home exercise program upon discharge, if needed, ?to ensure carryover of functional gains achieved in the clinic. This treatment plan has been reviewed and agreement upon by the patient.
[2024-10-16 10:05] VITALS: BP_SYST 130
--- NOTE | 2024-10-16 10:56 | OPREHPOC ---
Outpatient Therapy Plan of Care This is a Multidisciplinary Plan of Care that may contain components documented by all disciplines (PT, OT, and ST.) PT Problem 1 PT Problem #1 Knowledge Deficit PT Goal 1 Goal / Goal Update *indep with HEP 10-16-24 d/c goal met Target Visit 6 Progress Met PT Problem 2 PT Problem #2 Pain PT Goal 1 Goal / Goal Update * pt report pain at worst of 5/10 10-16-24 d/c goal not met, 7/10 at worst Target Visit 6 Progress Not Met PT Problem 3 PT Problem #3 Impaired Flexibility PT Goal 1 Goal / Goal Update * improve L shoulder flexibility, for improved out come with surgery passive motion of shoulder 1* flexion 120' 2* abduction 90' 3* ER with elbow at her side, 45' 10-16-24 d/c goalw met Target Visit 6 Progress Met PT Problem 4 PT Problem #4 Impaired Strength PT Goal 1 Goal / Goal Update * increase strength of L shoulder, to improve use of L arm and outcome post op: in standing, 3 reps active 1* flexion to 90' 2* abduction to 90' 3* ER- reach to back of head, palm to behind ear 4* IR- reach behind back, palm to buttock 10-16-24 d/c goal met #3,4 Target Visit 6 Progress Partially Met
--- NOTE | 2024-10-16 10:56 | PTOPDC ---
Assessment and note entered by Marietta Fagan, PT Assessment Status Discharge ICD-10 Condition Codes (PT) Pain in left shoulder M25.512 Onset January 2024 Subjective Information feel like I have a little more motion in my shoulder since coming for therapy; have been doing the exercises; surgery still scheduled for October 28; Reported Pain Level Pain Score Self Report L shoulder Additional Pain Score Comments pain range in the past week 1-7/10; intermittent numbness into L hand and arm decrease pain: ice, change position increase pain: lie on shoulder, shoulder abduction reach across body or behind body with sleeping, uncomfortable and change positions a lot, all through the night Assessment PT Clinical Summary Laurita has received 6 PT sessions. Today's assessment: reports pain range of 1-7/10, with intermittent pain into L UE and hand; decreased activity level and use of L arm with home and self care tasks; self assessment with Quick DASH rating of 36% limitation in activity level; issues with sleeping, is not able to get the L shoulder comfortable--changes positions and moves to recliner. L shoulder ROM: active in standing/ passive in supine: flexion 75'/ 130'; abduction 60'/ 130'; ER-reaching to back of head, palm to back of head/ 50' with elbow at side; IR- standing and reaching to back-palm to buttock. All motions increase pain, with abduction the most painful. The goals were partially achieved. Discharge PT services. She is to continue with her HEP and surgery is scheduled for October 28. Plan of Care PT Services Indicated No
== END 2024-10-16 11:56 | disposition home or self-care (01) ==
LOC: ANHPT 10:00
PROVIDERS: PCP Internal Medicine
DX: M25.512 Pain in left shoulder (principal); M75.102 Unspecified rotator cuff tear or rupture of left shoulder, not specified as traumatic; M12.812 Other specific arthropathies, not elsewhere classified, left shoulder
CPT/HCPCS: 97014; 97110; 97140; 97161; G0283

== ENCOUNTER 2025-02-09 09:45 | Outpatient (RCR) | payer MEDICARE, SELFPAY ==
--- NOTE | 2024-11-18 15:48 | OPREHPOC ---
Outpatient Therapy Plan of Care This is a Multidisciplinary Plan of Care that may contain components documented by all disciplines (PT, OT, and ST.) PT Problem 1 PT Problem #1 Knowledge Deficit PT Goal 1 Goal / Goal Update *independent with HEP Target Visit 10 PT Problem 2 PT Problem #2 Pain PT Goal 1 Goal / Goal Update 1* pt report pain rating at worst of 2/10 with increased activity 2* pt report sleeping in the bed/ no longer using the recliner Target Visit 10 PT Problem 3 PT Problem #3 Impaired Flexibility PT Goal 1 Goal / Goal Update increase L shoulder ROM, to improve use of L arm for reaching overhead tasks 1* shoulder flexion 140' 2* progression of ROM per dr orders Target Visit 10 PT Problem 4 PT Problem #4 Impaired Strength PT Goal 1 Goal / Goal Update increase scapular strength * pt maintain correct shoulder position during therapy session per PROTOCOL: AAROM and PROM only at this time progress per dr orders Target Visit 10
--- NOTE | 2024-11-18 15:48 | PTOPEVAL1 ---
Assessment and note entered by Marietta Fagan, PT Evaluation Information Assessment Status Evaluation ICD-10 Condition Codes (PT) Pain in left shoulder M25.512,Weakness R53.1, Aftercare following joint replacement surgery Z47. 1 Onset 10-28-24 Subjective Information on 10-28-24 had L reverse total shoulder replacement; have stopped using the sling since 11-12-24; was instructed no lifting more than a bottle of water; have been doing L finger, wrist, forearm supination/pronation, elbow flexion/extension- 20 reps, 2-3 x/day R hand dominant; retired and active; home with . Reported Pain Level Pain Score Self Report Additional Pain Score Comments pain range in the past week 0-3/10; only a few times up to 310- tweek in muscle that last few seconds only with sleeping- some discomfort with sleeping, sleep in recliner and bed both taking tylenol PRN; use ice PRN; Assessment PT Clinical Summary Adan is s/p L total shoulder reverse replacement on 10-28-24. The sling can be discontinued, but she is using when going out in crowds and with more soreness, walking and standing. She is active and motivated; has had PT in the past and motivated to regain use of her L arm. With the evaluation: L shoulder PROM is 130' and ER with elbow at her side is 40'; pain range of 0-3/10; posture with slight rounding of her shoulders; cervical, L: elbow, wrist and hand ranges are WNL and no pain. Skilled PT services are indicated for modalities PRN for pain control; therapeutic exercises per protocol--begin with AAROM and PROM of flexion and ER motions; education for HEP and progression of protocol per orders. Plan of Care Interventions Electrical Stimulation,Hot Pack/Cold Pack,Manual Therapy,Neuro Re-education,Patient/Caregiver Education,Therapeutic Activities,Therapeutic Exercise,Ultrasound,Other Other Interventions taping PT Services Indicated Yes Treatment Frequency and 1-2x/wk for 10 visits Duration These treatments will address the objective and functional deficits as defined above. The patient will be advanced safely and appropriately in order for the patient to progress towards his/her prior level of function. Additional exercises will be introduced and as well as a comprehensive home exercise program upon discharge, if needed, ?to ensure carryover of functional gains achieved in the clinic. This treatment plan has been reviewed and agreement upon by the patient.
--- NOTE | 2025-01-22 11:55 | OPREHPOC ---
Outpatient Therapy Plan of Care This is a Multidisciplinary Plan of Care that may contain components documented by all disciplines (PT, OT, and ST.) PT Problem 1 PT Problem #1 Knowledge Deficit PT Goal 1 Goal / Goal Update *independent with HEP 01-22-25 progress goal met continue to progress HEP Target Visit 18 PT Problem 2 PT Problem #2 Pain PT Goal 1 Goal / Goal Update 1* pt report pain rating at worst of 2/10 with increased activity 2* pt report sleeping in the bed/ no longer using the recliner 01-22-25 progress goals met Target Visit 10 Progress Met PT Goal 2 Goal / Goal Update 01-22-25 progress: NEW GOALS: 1* pain rating 1/10 with increased activity level Target Visit 18 PT Problem 3 PT Problem #3 Impaired Flexibility PT Goal 1 Goal / Goal Update increase L shoulder ROM, to improve use of L arm for reaching overhead tasks 1* shoulder flexion 140' 2* progression of ROM per dr orders 01-22-25 progress goal met Target Visit 10 Progress Met PT Goal 2 Goal / Goal Update 01-22-25 progress NEW GOALS: active ROM in standin* flexion 140' 2* IR- reaching behind back, palm to above waist Target Visit 18 PT Problem 4 PT Problem #4 Impaired Strength PT Goal 1 Goal / Goal Update increase scapular strength * pt maintain correct shoulder position during therapy session per PROTOCOL: AAROM and PROM only at this time progress per dr orders 01-22-25 progress goal met Target Visit 10 Progress Met PT Goal 2 Goal / Goal Update 01-22-25 progress: NEW GOALS: initiate when new orders for strengthening received: 5 reps in standing with hand wt: 1* flexion to 90' with 2# 2* ER with 2# Target Visit 18
--- NOTE | 2025-01-22 11:56 | PTOPPROG ---
Assessment and note entered by Marietta Fagan, PT Assessment Status progress ICD-10 Condition Codes (PT) Pain in left shoulder M25.512,Weakness R53.1, Aftercare following joint replacement surgery Z47. 1 Onset 10-28-24 Subjective Information shoulder is doing better; lifting and reaching into the cabinets is better; have been doing all the exercises, shoulder is still weak; PAIN: range in the past week 0-1/10; increase pain: reaching too far to side or front; decrease pain: rest, ice, heat; is sleeping in the bed; shoulder does not disrupt her sleep; is not taking any pain meds Assessment PT Clinical Summary Adan has received 10 PT sessions. Compared to the initial evaluation, she has improved in all areas: today: pain rating 0-1/10; self assessment with Quick DASH self rating of 39% limitation in activity level; increase use of L UE with home and self care tasks; education for HEP and posture; L shoulder ROM: active/passive: flexion 120/150'; abduction 80/130'; IR- reach behind back, palm to sacrum/ 50'; ER- reaching to back of head, fingers to cervical spine/ 50'. The goals were achieved. Continue PT for progression of protocol, when receive orders for strengthening. Plan of Care Interventions Electrical Stimulation,Hot Pack/Cold Pack,Manual Therapy,Neuro Re-education,Patient/Caregiver Education,Therapeutic Activities,Therapeutic Exercise,Ultrasound,Other Other Interventions taping PT Services Indicated Yes Treatment Frequency and 1-2x/wk for 8 visits Duration These treatments will address the objective and functional deficits as defined above. The patient will be advanced safely and appropriately in order for the patient to progress towards his/her prior level of function. Additional exercises will be introduced and as well as a comprehensive home exercise program upon discharge, if needed, ?to ensure carryover of functional gains achieved in the clinic. This treatment plan has been reviewed and agreement upon by the patient.
--- NOTE | 2025-04-26 09:49 | PCPTNOTE ---
PHYSICAL THERAPY DISCHARGE 04-26-25 Dr. Medeiros Mrs. Myles has received a total of 13 PT sessions, s/p L reverse total shoulder arthroplasty, from November 18 to February 09. She then stopped attending therapy. The PT goals were not assessed. Nitish PT.
== END 2025-02-16 12:50 | disposition home or self-care (01) ==
LOC: ANHPT 09:45
PROVIDERS: PCP Internal Medicine
DX: M75.102 Unspecified rotator cuff tear or rupture of left shoulder, not specified as traumatic (principal); M12.812 Other specific arthropathies, not elsewhere classified, left shoulder
CPT/HCPCS: 97014; 97110; 97140; 97161; 97530; G0283